=== PATIENT | female | born 1945 | race Caucasian/White ===

== ENCOUNTER 2017-04-30 12:24 | Emergency (ER) | payer MEDICARE ==
[~2017-04-30] VITALS: Ht 157.5 cm; Wt 48.3 kg
[~2017-04-30 12:24] MED LIST: GABA300C5 PO; LOVA40TA PO; SUPETAB20 PO; TEMA30CA PO; VITA10003 PO
[2017-04-30 12:33] VITALS: BP 125/69; PULSE 85; RESP 16; TEMP 97.6; O2SAT 99
[2017-04-30] MEDS ORDERED: D31000CA3 PO (12:49)
[2017-04-30] MEDS ORDERED: PROT40TA PO (12:49)
[2017-04-30] MEDS ORDERED: LIDOCAINE 2% JELLY 30 ML TUBE TOPICAL ONE (13:30)
[2017-04-30] MEDS ORDERED: LIDOCAINE HCL 1% 50 ML VIAL INFIL ONE (13:30)
--- NOTE | 2017-04-30 13:35 | PD ---
HPI Chief Complaint: Skin Problem Time Seen by Provider: 13:11 Travel History International Travel<30 days: No Contact w/Intl Traveler<30days: No Traveled to known affect area: No History of Present Illness HPI 72-year-old female here with a large skin tear to her right lower extremity;. Injury occurred prior to arrival. She reports a large picture slated down the anterior portion of the leg. She reports normal sensation of the extremity. Pain is localized to the laceration. Symptom severity is moderate. Tetanus immunization is up-to-date. PFSH Past Medical History Cancer: Yes (ESOPHAGEAL) Cardiovascular Problems: No Diabetes: No Diminished Hearing: No Endocrine: No Gastrointestinal Disorders: No GERD: Yes Genitourinary: No Hepatitis: No Hiatal Hernia: Yes Hypertension: No Immune Disorder: No Medical other: No Musculoskeletal: Yes ( RT KNEE REPLACEMENT) Neurologic: No Psychiatric: Yes Reproductive: No Respiratory: No Immunizations Current: Yes Thyroid Disease: Yes Tetanus Vaccination: < 5 Years ?: Not Past Surgical History Abdominal Surgery: No AICD: No Cardiac Surgery: No Cholecystectomy: Yes Ear Surgery: No Endocrine Surgery: No Eye Surgery: No Genitourinary Surgery: No Gynecologic Surgery: Yes (HYSTERECTOMY) Hysterectomy: Yes Joint Replacement: Yes (RT KNEE) Neurologic Surgery: No Oral Surgery: No Pacemaker: No Thoracic Surgery: No Social History Alcohol Use: Yes (OCC. WINE) Tobacco Use: Yes (1 PPD) Substance Use: No Allergies-Medications (Allergen,Severity, Reaction): Coded Allergies: penicillin G (Unverified Allergy, Intermediate, Hives, 04/30/17) Reported Meds & Prescriptions Reported Meds & Active Scripts Active Bacitracin Topical 500 Unit/Gm Oint 1 Applic TOPICAL BID Carson (Hydrocodone-Acetaminophen) 5 Mg-325 Mg Tab 1 Tab PO Q6H PRN 5 Days Clindamycin (Clindamycin HCl) 300 Mg Cap 300 Mg PO TID 7 Days Reported Protonix (Pantoprazole Sodium) 40 Mg Tab 40 Mg PO DAILY Vitamin D-3 (Cholecalciferol) 1,000 Unit Cap 1,000 PO DAILY Lovastatin 40 Mg Tab 40 Mg PO HS Gabapentin 300 Mg Cap 300 Mg PO TID Review of Systems Except as stated in HPI: all other systems reviewed are Neg General / Constitutional: No: Fever Physical Exam Narrative GENERAL: Alert female in no distress SKIN: Warm and dry. Large skin tear right anterior ross. HEAD: Normocephalic. EYES: No scleral icterus. No injection or drainage. NECK: Supple, trachea midline. No JVD or lymphadenopathy. CARDIOVASCULAR: Regular rate and rhythm without murmurs, gallops, or rubs. RESPIRATORY: Breath sounds equal bilaterally. No accessory muscle use. GASTROINTESTINAL: Abdomen soft, non-tender, nondistended. MUSCULOSKELETAL: No cyanosis, or edema. Right leg: Large skin tear to the anterior aspect measuring approximately 20 x 5 cm. No tendon or vascular injury identified. Normal sensation. Patient is able to dorsiflex and plantarflex the foot and move all toes. 2+ dorsal pedis pulse. Brisk cap refill. Data Data Last Documented VS Vital Signs Date Time Temp Pulse Resp B/P (MAP) Pulse Ox O2 Delivery O2 Flow Rate FiO2 04/30/17 12:33 97.6 85 16 125/69 (87) 99 Orders Orders Lidocaine 2% Jelly (Xylocaine 2% Jelly) (04/30/17 13:30) Lidocaine 1% Inj (50 Ml) (Xylocaine 1% I (04/30/17 13:30) Ketorolac Inj (Toradol Inj) (04/30/17 15:15) Ed Discharge Order (04/30/17 15:10) MDM Medical Decision Making Medical Screen Exam Complete: Yes Emergency Medical Condition: Yes Differential Diagnosis 72-year-old female with a large skin tear/laceration to the right lower extremity. Extremities neurovascularly intact. No tendon or vascular injury. Narrative Course 72 year old female with a large skin tear/laceration to the right anterior ross. Wound repair performed. She tolerated procedure well. Wound care discussed at length patient. She is going to be referred to wound care for follow-up. She verbalizes understanding and agrees to plan. Procedures Procedure Narrative LACERATION LOCATION: Complex skin tear/laceration to the Right anterior ross LENGTH: Approximately 20 cm's NUMBER OF STITCHES/ROGER: [31] REPAIR: The area of the laceration was prepped with Betadine and sterilely draped. The laceration was infiltrated with 1% lidocaine. The wound was copiously irrigated and explored without evidence of foreign body, tendon injury or neurovascular injury. The wound was closed using 4-0Vicryl. This was a single layer repair. A sterile dressing was applied. The patient was advised to keep the dressing clean and dry. Patient tolerated the procedure well. Diagnosis Primary Impression: Laceration of right lower extremity Qualified Codes: S81.811A - Laceration without foreign body, right lower leg, initial encounter Referrals: [facility] wound care Primary Care Physician Additional Instructions: Keep the dressing in place for 24-48 hours. Elevate the extremity. Take the antibiotics as prescribed. Follow-up with her primary doctor for recheck. Make an appointment with [place] wound [facility]. Scripts Bacitracin Topical (Bacitracin Topical) 500 Unit/Gm Oint 1 APPLIC TOPICAL BID for Infection, #113 GM 0 Refills Prov: Clementine Pham 04/30/17 Hydrocodone-Acetaminophen (Carson) 5 Mg-325 Mg Tab 1 TAB PO Q6H Y for PAIN for 5 Days, #20 TAB 0 Refills Prov: Danny Dsouza MD 04/30/17 Clindamycin (Clindamycin) 300 Mg Cap 300 MG PO TID for Infection for 7 Days, CAP 0 Refills Prov: Clementine Pham 04/30/17 Disposition: 01 DISCHARGE HOME Condition: Stable Clementine Pham Apr 30, 2017 13:35
[2017-04-30] MEDS ORDERED: CLIN300C5 PO (15:09)
[2017-04-30] MEDS ORDERED: NORC5TAB PO (15:10)
[2017-04-30] MEDS ORDERED: KETOROLAC TROMETHAMINE 60 MG/2 ML (IM) VIAL IM ONE (15:15)
[2017-04-30] MEDS ORDERED: BACI500O2 TOPICAL (15:23)
== END 2017-04-30 15:40 | disposition home or self-care (01) ==
LOC: PHEFT 12:24
DX: S81.811A Laceration without foreign body, right lower leg, initial encounter (principal); E07.9 Disorder of thyroid, unspecified; F17.200 Nicotine dependence, unspecified, uncomplicated; Z85.01 Personal history of malignant neoplasm of esophagus; Z87.19 Personal history of other diseases of the digestive system; Z87.39 Personal history of other diseases of the musculoskeletal system and connective tissue; W22.8XXA Striking against or struck by other objects, initial encounter
CPT/HCPCS: 12005; 96372; 99284; J1885

== ENCOUNTER 2017-07-14 09:25 | Day surgery (SDC) | payer MEDICARE ==
[~2017-07-14] VITALS: Ht 158.8 cm; Wt 49.5 kg
[~2017-07-14 09:25] MED LIST changes: +BACI500O2 TOPICAL; +CLIN300C5 PO; +D31000CA3 PO; +NORC5TAB PO; +PROT40TA PO; -SUPETAB20 PO; -TEMA30CA PO; -VITA10003 PO
[2017-07-14 10:00] VITALS: BP 107/75; PULSE 79; RESP 20; TEMP 97.6; O2SAT 95
[2017-07-14] MEDS ORDERED: TEMA30CA PO (10:06)
[2017-07-14] MEDS ORDERED: B-122000 PO (10:06)
[2017-07-14] MEDS ORDERED: DOCU100C15 PO (10:06)
[2017-07-14] MEDS ORDERED: SENN8.6T81 PO (10:06)
[2017-07-14] MEDS ORDERED: CALC1TAB12 PO (10:06)
[2017-07-14] MEDS ORDERED: FOLI400T PO (10:06)
[2017-07-14] MEDS ORDERED: GING500C (10:06)
[2017-07-14 11:17] LABS: PROTHROMBIN TIME - PATIENT 10.2 SEC (9.8-11.6)
[2017-07-14] MEDS ORDERED: SODIUM CHLOR 0.9% 250 ML INJ 250 ML ONE (12:06)
[2017-07-14] MEDS ORDERED: VANCOMYCIN HCL 1000 MG VIAL ONE (12:06)
[2017-07-14] MEDS ORDERED: LIDOCAINE 1%/EPINEPHrine 1:100,000 SOLN 30 ML VIAL ONE (12:12)
--- NOTE | 2017-07-14 12:34 | PD.RAD ---
Post Procedure Progress Note Pre Procedure Diagnosis: (1) Malignancy Post Procedure Diagnosis: (1) Malignancy Procedure Date: Jul 14, 2017 Supervising Radiologist: Julio Cedeno JR Proceduralist/Assist: Tony Turner RT(R) Anesthesia: Local Plan of Activity Patient to Unit: ROPU Patient Condition: Good Additional Comments: Removed right chest port without difficulty. No signs of infection. F/U with IR in 10-14 days for a site check. See PACS Report for procedural detail/treatment Jr. Wilian,Julio Dumas MD Jul 14, 2017 12:34
[2017-07-14 12:40] VITALS: BP 112/66; PULSE 66; RESP 20; TEMP 97.7; O2SAT 99
[2017-07-14 12:55] VITALS: BP 106/66; PULSE 70; RESP 20; O2SAT 99
--- NOTE | 2017-07-14 14:15 | RADRPT ---
EXAM DATE/TIME: 07/14/2017 00:00 [place] COMPARISON: No previous studies available for comparison. INDICATIONS : Patient presents post treatment in need of port removal. MEDICAL HISTORY : Esophageal cancer Arthritis Hypothyroidism Peripheral neuropathy Diverticulosis GERD Gastroparesis SURGICAL HISTORY : Right knee replacement Squamous cell carcinoma resected Cholecystectomy Benign breast biopsy Hysterectomy ENCOUNTER: Initial ACUITY: 2 days PAIN SCORE: 0/10 LOCATION: N/A SEDATION TIME: 0 minutes 1.) 1 g Vancomycin IV Intra-procedural antibiotics were given as prescribed above. PROCEDURE : 1. Removal of [id number]. The risk, benefits and potential complications of [id number] removal were discussed. Written conse nt was obtained. The patient requested no sedation. Local anesthetic was utilized only. The patient was placed supine. The chest wall was prepped in sterile fashion. Full sterile technique was used, including cap, mas k, sterile gloves and gown, and a large sterile sheet. Hand hygiene and 2% chlorhexidine and/or Beta dine/alcohol prep was utilized per protocol for cutaneous antisepsis. The skin and subcutaneous tiss ues were infiltrated with local anesthetic solution. A small incision was made, the subcutaneous pock et was opened. The port was dissected from the subcutaneous tissues and easily removed in one piece. The pocket incision was closed with subcuticular Vicryl suture. Steri-Strips were applied. The patient tolerated the procedure well and there were no complications. The patient was sent to [facility] anesthesia recovery in stable condition. CONCLUSION: Uncomplicated port removal as above. Juloi Cedeno Jr., MD on July 14, 2017 at 14:12 Board Certified Radiologist. This report was verified electronically.
== END 2017-07-14 13:46 | disposition home or self-care (01) ==
LOC: HROP 09:25 → HRIP 09:57 → HROP 13:46
PROVIDERS: ATTEND Internal Medicine Hematology & Oncology
DX: Z45.2 Encounter for adjustment and management of vascular access device (principal); C15.9 Malignant neoplasm of esophagus, unspecified; E03.9 Hypothyroidism, unspecified; K31.84 Gastroparesis; K21.9 Gastro-esophageal reflux disease without esophagitis; G62.9 Polyneuropathy, unspecified; Z96.651 Presence of right artificial knee joint
CPT/HCPCS: 36590; 85610; 85730; J3370; J7050